=== PATIENT | female | born 1990 | race Caucasian/White ===

== ENCOUNTER 2021-11-23 09:06 | Inpatient (IN) | payer OTHER ==
[~2021-11-23 09:06] MED LIST: Bupivacaine 0.25% HCL 30 ML VIAL ONE; Bupivacaine/Epinephrine 0.25% 30 ML VIAL ONE
[2021-11-23] MEDS ORDERED: Misoprostol 200 MCG TAB PR PRN (09:09)
[2021-11-23] MEDS ORDERED: Diphenoxylate HCl/Atropine Tablet PO PRN ×2 (09:09)
[2021-11-23] MEDS ORDERED: Promethazine HCl 25 MG/ML VIAL IM PRN (09:09)
[2021-11-23] MEDS ORDERED: HYDROcodone/Acetaminophen 5/325 mg Tablet PO PRN ×4 (09:09→15:45)
[2021-11-23] MEDS ORDERED: Docusate 100 MG CAP PO PRN (09:09)
[2021-11-23] MEDS ORDERED: Butorphanol Tartrate 1 MG/ML VIAL SLOW IVP PRN (09:09)
[2021-11-23] MEDS ORDERED: Lidocaine 1% (PF) 30 ML VIAL SC PRN (09:09)
[2021-11-23] MEDS ORDERED: Ibuprofen 800 MG TAB PO PRN (09:09)
[2021-11-23] MEDS ORDERED: Ondansetron PF 4 MG/2 ML Vial IVP PRN ×2 (09:09→15:45)
[2021-11-23] MEDS ORDERED: Acetaminophen 500 MG TAB PO PRN (09:09)
[2021-11-23] MEDS ORDERED: hydrALAZINE 20 MG/ML VIAL SLOW IVP PRN ×2 (09:09→15:45)
[2021-11-23] MEDS ORDERED: NS w/ Oxytocin 30 units 500 ML IV SCH ×2 (09:15→15:45)
[2021-11-23] MEDS: Lactated Ringer's 1,000 ML IV SCH (09:40)
[2021-11-23 09:58] LABS: Hemoglobin 10.3 g/dL (12.0-15.5); Mean Corpuscular HGB CONC 32.1 g/dL (32.0-36.0); Mean Corpuscular Hemoglobin 27.1 pg (27.0-33.0); Mean Corpuscular Volume 84.5 fl (81.6-98.3); Mean Platelet Volume 10.3 fl (7.4-10.4); Platelet Count 206 10x3/uL (150-450); White Blood Cell (WBC) Count 7.7 10x3/uL (3.5-10.5)
[2021-11-23 10:00] VITALS: BMI 25.2
[2021-11-23 10:31] LABS: Syphilis Antibody Nonreactive (Nonreactive); Syphilis Antibody Index 0.04 S/CO (<1.00 Non-Reactive)
[2021-11-23 10:32] LABS: Hep B Surf Ag Non-Reactive S/CO (NonReactive)
[2021-11-23] MEDS ORDERED: Fentanyl 2 mcg/Bup 0.1% Cadd 100 ML ONE (10:41)
[2021-11-23 10:49] LABS: HBSAg Index 0.16 S/CO (0-0.99)
[2021-11-23 11:33] LABS: SARS-CoV-2 NAA Rapid Test Not Detected (NotDetected)
[2021-11-23] MEDS: NS w/ Oxytocin 30 units 500 ML IV SCH ×2 (11:57→15:57)
[2021-11-23] MEDS ORDERED: Bisacodyl 10 MG SUPP PR PRN (15:45)
[2021-11-23] MEDS ORDERED: Boostrix 0.5 ML (Tdap) VIAL IM ONE (15:45)
[2021-11-23] MEDS ORDERED: Lanolin Ointment 7 GM TUBE TOP PRN (15:45)
[2021-11-23] MEDS ORDERED: Preparation H Ointment 28 GM TUBE PR PRN (15:45)
[2021-11-23] MEDS ORDERED: Zolpidem Tartrate 5 MG TAB PO PRN (15:45)
[2021-11-23] MEDS ORDERED: diphenhydrAMINE 25 MG CAP PO PRN (15:45)
[2021-11-23] MEDS ORDERED: Milk Of Magnesia 30 ML UDCUP PO PRN (15:45)
[2021-11-23] MEDS ORDERED: Benzocaine-Menthol 82.5 ML CAN TOP PRN (15:45)
[2021-11-23] MEDS ORDERED: Misoprostol 200 MCG TAB VAG PRN (15:45)
[2021-11-23] MEDS ORDERED: Witch Hazel-Glycerin 1 EACH JAR TOP PRN (15:47)
[2021-11-23] MEDS: Docusate 100 MG CAP PO SCH (21:21)
[2021-11-24] MEDS: Ibuprofen 800 MG TAB PO SCH ×3 (00:48→17:14)
[2021-11-24 04:28] LABS: Hemoglobin 9.4 g/dL (12.0-15.5); Mean Corpuscular HGB CONC 33.1 g/dL (32.0-36.0); Mean Corpuscular Hemoglobin 28.1 pg (27.0-33.0); Mean Platelet Volume 10.3 fl (7.4-10.4); Platelet Count 196 10x3/uL (150-450); RBC Distribution Width 12.1 % (11.5-14.5); Red Blood Cell (RBC) Count 3.34 10x6/uL (3.90-5.03); White Blood Cell (WBC) Count 10.1 10x3/uL (3.5-10.5)
[2021-11-24] MEDS: Docusate 100 MG CAP PO SCH ×2 (08:36→22:02)
[2021-11-24] MEDS: Ferrous Sulfate 325 MG TAB PO SCH ×3 (08:36→17:14)
[2021-11-24] MEDS: Prenatal Vitamin 1 TAB PO SCH (08:36)
[2021-11-25] MEDS: Ibuprofen 800 MG TAB PO SCH ×3 (01:22→18:29)
[2021-11-25 07:46] VITALS: BP 102/59; TEMP 98.5
[2021-11-25] MEDS: Prenatal Vitamin 1 TAB PO SCH (08:45)
[2021-11-25] MEDS: Ferrous Sulfate 325 MG TAB PO SCH ×2 (08:45→18:29)
[2021-11-25] MEDS: Docusate 100 MG CAP PO SCH (08:46)
[2021-11-25] MEDS: Lactated Ringer's 1,000 ML IV SCH (09:32)
== END 2021-11-25 18:30 | disposition home or self-care (01) | DRG 807 ==
LOC: CSHLD 09:06 → CSHPED 17:40
PROVIDERS: ADMIT Obstetrics & Gynecology; ATTEND Obstetrics & Gynecology
PROC: 10E0XZZ Delivery of Products of Conception, External Approach (ICD-10-PCS; principal; 2021-11-23)
PROC: 10907ZC Drainage of Amniotic Fluid, Therapeutic from Products of Conception, Via Natural or Artificial Opening (ICD-10-PCS; 2021-11-23)
PROC: 0W8NXZZ Division of Female Perineum, External Approach (ICD-10-PCS; 2021-11-23)
DX: O26.893 Other specified pregnancy related conditions, third trimester (principal); Z37.0 Single live birth; Z67.41 Type O blood, Rh negative; Z3A.38 38 weeks gestation of pregnancy; Z20.822 Contact with and (suspected) exposure to COVID-19; Z86.16 Personal history of COVID-19; D64.9 Anemia, unspecified; O99.02 Anemia complicating childbirth; Z79.82 Long term (current) use of aspirin; Z87.440 Personal history of urinary (tract) infections; O76 Abnormality in fetal heart rate and rhythm complicating labor and delivery
CPT/HCPCS: 36415; 51702; 85027; 86780; 86850; 86870; 86900; 86901; 87340; J2590; J7120; S0020; U0002